=== PATIENT | male | born 1970 | race Caucasian/White ===

== ENCOUNTER 2017-01-22 21:57 | Emergency (ER) | payer OTHER | END 2017-01-23 01:30 | disposition home or self-care (01) | LOC: ER 21:57 | PROC: 3E0234Z Introduction of Serum, Toxoid and Vaccine into Muscle, Percutaneous Approach (ICD-10-PCS; principal; 2017-01-23) | DX: S62.630A Displaced fracture of distal phalanx of right index finger, initial encounter for closed fracture (principal); W23.0XXA Caught, crushed, jammed, or pinched between moving objects, initial encounter; Y92.64 Mine or pit as the place of occurrence of the external cause; Y99.0 Civilian activity done for income or pay; Z98.52 Vasectomy status; Z23 Encounter for immunization | CPT/HCPCS: 12001; 73140; 90471; 90715; 99070; 99283; 99283-25 ==